=== PATIENT | male | born 1965 | race Caucasian/White ===

== ENCOUNTER 2017-11-30 11:19 | Outpatient (CLI) | payer OTHER | END 2017-11-30 11:26 | disposition home or self-care (01) | LOC: SONOGRAMA 11:19 | DX: S86.012A Strain of left Achilles tendon, initial encounter (principal); M76.72 Peroneal tendinitis, left leg ==

== ENCOUNTER 2019-06-02 07:23 | Outpatient (CLI) | payer OTHER | END 2019-06-02 07:44 | disposition home or self-care (01) | LOC: NUCLEAR 07:23 | DX: I20.8 Other forms of angina pectoris (principal) | CPT/HCPCS: 78452; 93017; A9500 ==

== ENCOUNTER 2021-04-14 08:00 | Outpatient (CLI) | payer OTHER | END 2021-04-14 23:59 | disposition home or self-care (01) | LOC: PPH VACUNA 08:00 → EDSTATUS 10:41 | PROVIDERS: ATTEND Emergency Medicine Pediatric Emergency Medicine | DX: Z23 Encounter for immunization (principal) ==

== ENCOUNTER 2021-08-27 08:00 | Outpatient (CLI) | payer OTHER | END 2021-08-27 08:30 | disposition home or self-care (01) | LOC: PPH VACUNA 08:00 | PROVIDERS: ATTEND Emergency Medicine Pediatric Emergency Medicine | DX: Z23 Encounter for immunization (principal) ==

== ENCOUNTER → 2022-06-01 20:20 | Outpatient (CLI) | payer OTHER | END | disposition home or self-care (01) | LOC: PPH VACUNA 20:20 | PROVIDERS: ATTEND Emergency Medicine Pediatric Emergency Medicine | DX: Z23 Encounter for immunization (principal) ==

== ENCOUNTER 2022-12-22 09:27 | Outpatient (CLI) | payer OTHER | END 2022-12-22 09:36 | disposition home or self-care (01) | LOC: RAD 09:27 | PROVIDERS: ATTEND Family Medicine | DX: R05.3 Chronic cough (principal) ==

== ENCOUNTER 2023-01-08 10:04 | Outpatient (CLI) | payer OTHER | END 2023-01-08 10:18 | disposition home or self-care (01) | LOC: SONOGRAMA 10:04 | PROVIDERS: ATTEND Physical Medicine & Rehabilitation | DX: M25.511 Pain in right shoulder (principal) ==